=== PATIENT | male | born 1945 | race Caucasian/White ===

== ENCOUNTER → 2016-06-07 | Outpatient (CLI) | payer MEDICARE, OTHER ==
--- NOTE | 2016-06-15 08:59 | RADIOLOGY REPORT PS360 ---
EXAM: CT LUNG LOW DOSE WO CONTRAST COMPARISON: None HISTORY: 10 year old male smoker asymptomatic ORDERING PHYSICIAN: Aditya Washington MD PATIENT AGE: 70 years TECHNIQUE: The exam was performed on a GE Light Speed [address] scanner using 3.0 mGy CTDI. A low dose helical CT CHEST was performed on a multi-detector scanner The LDCT was performed in a facility that meets the criteria for the screening program. Data regarding this exam was submitted to ACR which is an approved registry. The order for this exam indicates that it came as a result of a lung cancer screening counseling shard decision-making visit that included all the elements required of such a visit including smoking cessation. The radiologist interpreting this exam meets the [facility] criteria for the LDCT lung cancer screening program. The exam is reported using the Lung-RADS classification scale and reported to the ACR registry. NOTE: This study was performed for the specific purposes of lung cancer screening and is not an alternative to diagnostic chest CT. RADIATION DOSE: CTDI vol(CT dose Index-volume) = 4.19 mG DLP (Dose Length Product) = 172.95 mGcm FINDINGS: No suspicious pulmonary nodules evident. Calcified granulomas present in the right upper lobe. There is mild atelectatic or fibrotic changes in the lower lobes posteriorly. Incidental note made of coronary artery calcifications and mitral valve annular calcification. IMPRESSION: 1. Lung RADS Category: 2, benign 2. Other findings: Coronary artery disease RECOMMENDATIONS: 12 month screening of the CT
== END ==
LOC: RAD 13:25
DX: Z87.891 Personal history of nicotine dependence (principal); Z12.2 Encounter for screening for malignant neoplasm of respiratory organs
CPT/HCPCS: G0297